=== PATIENT | female | born 1990 | race African-American/Black ===

== ENCOUNTER 2019-05-15 09:58 | Emergency (ER) | payer OTHER ==
[2019-05-15] MEDS ORDERED: METOCLOPRAMIDE HCL 10 MG TABLET PO ONE (11:03)
--- NOTE | 2019-05-15 11:04 | ER Document Report ---
ED Medical Screen (RME) - General TRAVEL OUTSIDE OF THE [place] IN LAST 30 DAYS: No <MIGUELBARBIE Louisa - Last Filed: 05/15/19 11:03> <BARBIE DEL CID - Last Filed: 05/15/19 18:57> - General Chief Complaint: Abdominal Pain Stated Complaint: ABDOMINAL CRAMPING,DIZZINESS Time Seen by Provider: 05/15/19 10:59 Notes: Patient is a 29-year-old female who presents to the emergency department with a chief complaint of right lower abdominal pain. Patient states that her last men strual cycle was in February. Is , but has not yet received care. She has been taking Tylenol for her pain. Denies any vaginal bleeding, but states that she has some vaginal discharge. Exam: Mildly tender lower right abdomen. I have greeted and performed a rapid initial assessment of this patient. A comprehensive ED assessment and evaluation of the patient, analysis of test r esults and completion of medical decision making process will be conducted by an additional ED providers. (BARBIE RIVERA) - Related Data Allergies/Adverse Reactions: No Known Allergies Allergy (Verified 05/15/19 10:57) Past Medical History - Social History Chew tobacco use (# tins/day): No Frequency of alcohol use: None Drug Abuse: None <MIGUELDONNELLBARBIE Louisa - Last Filed: 05/15/19 11:03> Physical Exam - Vital signs Vitals: Temp Pulse Resp BP Pulse Ox 98.2 F 59 L 18 109/68 100 05/15/19 10:23 05/15/19 10:23 05/15/19 10:23 05/15/19 10:23 05/15/19 10:23 Course - Laboratory Result Diagrams: 05/15/19 11:17 05/15/19 11:17 <BARBIE DEL CID - Last Filed: 05/15/19 18:57> - Re-evaluation Re-evalutation: 05/15/19 16:56 Patient left before I could see her, examine her or give results. (BARBIE DEL CID) - Vital Signs Vital signs: Temp Pulse Resp BP Pulse Ox 98.2 F 57 L 18 114/71 98 05/15/19 11:53 05/15/19 11:53 05/15/19 10:23 05/15/19 11:53 05/15/19 11:53 - Laboratory Laboratory results interpreted by me: 05/15/19 05/15/19 05/15/19 11:04 11:17 11:17 RDW 14.9 H Sodium 135.6 L Beta HCG, Quant [id number] H Urine Protein 30 H Ur Leukocyte Esterase LARGE H Doctor's Discharge <BARBIE RIVERA - Last Filed: 05/15/19 11:03> <BARBIE DEL CID - Last Filed: 05/15/19 18:57> - Discharge Disposition: ELOPED Cosign for MLP Consult - Cosign -: I was personally available for consultation in the Emergency Department and melvin gonsales as supervising physician for the MLP. Cosign for MLP: Place <BARBIE DEL CID - Last Filed: 05/15/19 18:57>
[2019-05-15 11:37] LABS: ABSOLUTE BASOPHILS # (AUTO) 0.1 10^3/uL (0.0-0.2); ABSOLUTE LYMPHOCYTES (AUTO) 1.6 10^3/uL (0.5-4.7); ABSOLUTE MONOCYTES (AUTO) 0.6 10^3/uL (0.1-1.4); ABSOLUTE NEUT (AUTO) 4.7 10^3/uL (1.7-8.2); BASOPHILS % (AUTO) 0.9 % (0-2); EOSINOPHILS % (AUTO) 0.3 % (0-6); HEMATOCRIT 40.2 % (36.0-47.0); HEMOGLOBIN 13.6 g/dL (12.0-15.5); LYMPHOCYTES % (AUTO) 22.5 % (13-45); MEAN CORPUSCULAR HEMOGLOBIN 28.7 pg (27.0-33.4); MEAN CORPUSCULAR HGB CONC 33.9 g/dL (32.0-36.0); MEAN CORPUSCULAR VOLUME 85 fl (80-97); MONOCYTES % (AUTO) 8.9 % (3-13); PLATELET COUNT 297 10^3/uL (150-450); RED BLOOD COUNT 4.74 10^6/uL (3.72-5.28); RED CELL DISTRIBUTION WIDTH 14.9 % (11.5-14.0); SEGMENTED NEUTROPHILS % (AUTO) 67.4 % (42-78); TOTAL CELLS COUNTED % (AUTO) 100 %; WHITE BLOOD COUNT 6.9 10^3/uL (4.0-10.5)
[2019-05-15 11:44] LABS: APPEARANCE,URINE SLIGHTLY-CLOUDY; BILIRUBIN,URINE NEGATIVE (NEGATIVE); COLOR,URINE YELLOW; GLUCOSE, URINE NEGATIVE (NEGATIVE); KETONES,URINE NEGATIVE (NEGATIVE); LEUKOCYTE ESTERASE,URINE LARGE (NEGATIVE); NITRITE,URINE NEGATIVE (NEGATIVE); PROTEIN,URINE 30 mg/dL (NEGATIVE); URINE SPECIFIC GRAVITY 1.021; UROBILINOGEN,URINE NEGATIVE mg/dL (<2.0)
[2019-05-15 12:01] LABS: ALBUMIN 4.5 g/dL (3.5-5.0); ALKALINE PHOSPHATASE 76 U/L (38-126); ANION GAP 12 (5-19); ASPARTATE AMINO TRANSFERASE 23 U/L (14-36); BILIRUBIN,DIRECT 0.1 mg/dL (0.0-0.4); BILIRUBIN,TOTAL 0.6 mg/dL (0.2-1.3); BLOOD UREA NITROGEN 9 mg/dL (7-20); CALCIUM 9.2 mg/dL (8.4-10.2); CARBON DIOXIDE 22 mmol/L (22-30); CHLORIDE 102 mmol/L (98-107); GLUCOSE 80 mg/dL (75-110); TOTAL PROTEIN 7.9 g/dL (6.3-8.2)
[2019-05-15 12:07] VITALS: BP 114/71
--- NOTE | 2019-05-15 12:08 | RADIOLOGY REPORT (SQ) ---
EXAM DESCRIPTION: U/S OB TRANSVAG W/DOPPLER COMPLETED DATE/TIME: 05/15/2019 11:39 am REASON FOR STUDY: RLQ abd cramping; COMPARISON: None. TECHNIQUE: Transabdominal static and realtime grayscale images acquired of the pelvis. Additional se lected spectral and color Doppler images recorded. All images stored on PACs. bHCG: Not available. CLINICAL DATES: Not available LIMITATIONS: None. FINDINGS: FETUS: Single Living intrauterine . ULTRASOUND EGA: 10 weeks 3 days ULTRASOUND DOMINIK: 12/08/2019 EFW: Not applicable less than 20 weeks. CRL: 3.5 cm FHR: 165 beats per minute. SURVEY: Too early to assess. AMNIOTIC FLUID: Adequate amount. PLACENTA: Not yet developed due to early gestation. SUBCHORIONIC BLEED: No. SIZE OF BLEED: Not applicable. UTERUS: No masses. No anomalies. Uterus measures 11 x 7.3 x 7.9 cm CERVICAL LENGTH: 3.0 cm. Closed. RIGHT ADNEXA: Normal ovary with normal vascular flow. Ovary measures 2.8 x 3.6 x 4.4 cm No adnexal free fluid. No adnexal masses. LEFT ADNEXA: Nonvisualized. No adnexal free fluid. No adnexal masses. FREE FLUID: None. OTHER: No other significant finding. IMPRESSION: Living intrauterine with estimated gestational age of 10 weeks and 3 days. Trimester of : First trimester - 0 to 13 weeks. TECHNICAL DOCUMENTATION: JOB ID: [id number] [employer]- All Rights Reserved Reading location - IP/workstation name: [email or web address]
[2019-05-15 13:31] LABS: CHLAM PCR NOT DETECTED (NOT DETECT)
== END 2019-05-15 16:54 | disposition left against medical advice (07) ==
LOC: ER 09:58
DX: Z53.21 Procedure and treatment not carried out due to patient leaving prior to being seen by health care provider (principal); O26.899 Other specified pregnancy related conditions, unspecified trimester; R10.9 Unspecified abdominal pain; R42 Dizziness and giddiness; R10.31 Right lower quadrant pain; Z3A.01 Less than 8 weeks gestation of pregnancy
CPT/HCPCS: 36415; 76817; 80053; 81001; 83690; 84702; 85025; 86900; 86901; 87491; 87591; 93976